=== PATIENT | female | born 2000 | race Caucasian/White ===

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

== ENCOUNTER 2021-02-09 14:04 | Emergency (ER) | payer MEDICAID, SELFPAY ==
[2021-02-09 14:11] VITALS: BP 116/68; PULSE 73; RESP 16; TEMP 36.9; O2SAT 100
--- NOTE | 2021-02-09 15:01 | ED.GENADUL_ITS ---
Discharge Plan Disposition Patient Disposition: HOME Condition: Improving Discharge Details Clinical Impression: Abdominal pain, Nausea vomiting and diarrhea Primary Care Provider: Aurelia Lombardi ED Provider: Desean Jarquin Home Meds and New Rx's Prescriptions: New ondansetron HCl [Zofran] 4 mg tablet 4 mg PO Q8H PRNQty: 10 RF: 0 Continued Nexplanon 68 MG implant 68 mg SQ ONCE Qty: 1 RF: 0 Discharge Instructions Instructions: Abdominal Pain (ED), Acute Nausea and Vomiting (ED) Additional Instructions: Laboratory values today in the ER did not reveal any obvious emergent process. As we discussed, I am providing a prescription of Zofran, take as directed. Clear liquid diet, advance as tolerated. Tgth-[id number]-[id number] medication such as Imodium may help with symptomatic control. Clear liquid diet, advance as tolerated. Please watch for new or worsening symptoms and return to the ER for any concerns. I have placed a referral to [facility], they should be contacting you to set up outpatient follow-up. I also recommend contacting your primary care provider tomorrow to discuss your ER visit need for outpatient reevaluation. Medical Decision Making <GREG Barakat - Last Filed: 02/09/21 17:41> Patient is a pleasant 21-year-old female presenting today, brought in by her stepmom, with chief complaint abdominal discomfort, nausea, vomiting, diarrhea and vaginal discharge. She reports this began approximately 1 week ago. Indicates the left side of the abdomen is area of maximal discomfort. She denies any alcohol intake. Denies any illicit drug use. Has a Nexplanon in [facility], denies being . She denies any fevers but states that she has had some chills. Last vomited 2 days ago. Had watery bowel movements today. No recent antibiotic use. No previous abdominal surgeries. Patient also concerned that she was bit by a tick on her right breast. On exam, patient appears anxious. Vital signs are stable. She has a small dot on her right breast. No surrounding erythema. She states that the tick was not embedded much and was not engorged. Unclear how long this was on for. Tick was crawling around as well. Advised that this is unlikely as it would not engorged, is an area that she likely would have seen, that probably was not on long enough to transmit Lyme disease or tic born illness. Her lungs are clear. Normal cardiac auscultation. Abdomen is diffusely tender. No peritoneal findings, no guarding. Differential diagnosis at this time is quite large. Will obtain baseline labs, particularly given the length of time she been having the vomiting and diarrhea. Patient has been using Pepto-Bismol and Tylenol to help with the discomfort without relief. We also like to questioning the patient further without her stepmother present as I am concerned about the vaginal discharge and potential sexual encounters. Will perform a vaginal exam for further evaluation. Also give some IV hydration and she has not wanted to drink or eat much for the past week. Discussed this and the patient is in agreement. Vaginal exam concerning for yellow/green mucousy discharge. This was collected from cervix for GC/chlamydia and vag path. No cervical motion tenderness. Spoke with her in private. She has had unprotected sex with signficant other of 3 yeas. She has implanon in place but is unclear how long this has been in place. Plan to refer to [facility] for continued management. Labs reviewed. WBC elevated at 12.3. CMP without signficant abnormality. UA contaminated. At the end of my shift, care transitioned to Desean Jarquin PA-C with vaginal pathology screen and reevaluation after hydration pending. <GREG Saenz - Last Filed: 02/09/21 18:46> This is a 21-year-old female who I assumed care of from my colleague GREG Velasquez, please see her initial HPI and examination. At time of signout awaiting vaginal path result, hydration, reevaluation. Rest of work-up has been completed. Mild nonspecific leukocytosis of 12.30. Urine with 80 ketones. Patient to receive IV hydration. Vaginal path negative for Queta, Gardnerella, trichomonas. GC chlamydia pending. I discussed work-up with both patient and her mother. Patient is to receive 1 L IV hydration. No vomiting under my care but will provide a prescription for Zofran for her nausea. Also recommend [id number] Imodium for her diarrhea. Clear liquid diet, advance as tolerated. Recommend that she contact her primary care provider tomorrow to discuss her ER visit and need for outpatient reevaluation. She does understand that her GC and chlamydia is pending and she will be contacted if positive, otherwise she will not be contacted if negative. I have also placed a referral to [facility] to her for her ongoing symptoms. Both mother and patient are comfortable this plan and have no additional questions or concerns. Patient able to tolerate p.o. intake without difficulty. She appears well, nontoxic, hemodynamically stable. Standard discharge and return precautions provided This documentation was generated using [employer] system, please disregard any oddities of phrase or misspellings. Medical Records Medical records reviewed: Yes I reviewed the patient's medical records. Lab Data Lab results reviewed: Yes I reviewed the patient's lab results. Labs: 02/09/21 16:15 Vaginal Vaginitis Screen - Final Laboratory Tests Range/Units 02/09/21 02/09/21 02/09/21 15:20 15:20 15:30 WBC (4.4-10.8) 10^3/uL 12.30 H RBC (3.93-5.22) 10^6/uL 4.65 Hgb (11.2-15.7) g/dL 13.5 Hct (36.0-46.0) % 42.2 MCV (80-95) fL 90.8 MCH (27.0-33.0) pg 29.0 MCHC (32.0-36.0) % 32.0 RDW (11.7-14.6) % 12.3 Plt Count (130-400) 10^3/uL 259 MPV (8.0-11.0) fL 10.9 Immature Gran % 0.3 Neutrophils % 83.3 Lymphocytes % 10.1 Monocytes % 5.9 Eosinophils % 0.1 Basophils % 0.3 Nucleated RBC % % 0 Absolute Neutrophils (1.2-6.7) 10^3/uL 10.25 H Absolute Lymphocytes (1.2-3.4) 10^3/uL 1.24 Absolute Monocytes (0.1-0.8) 10^3/uL 0.73 Absolute Eosinophils (0.0-0.7) 10^3/uL 0.01 Absolute Basophils (0.0-0.2) 10^3/uL 0.04 Sodium (136-145) mmol/L 141 Potassium (3.5-5.1) mmol/L 3.8 Chloride (98-107) mmol/L 104 Carbon Dioxide (21.0-32.0) mmol/L 27.7 Anion Gap (3-11) mmol/L 9.3 BUN (7-18) mg/dL 9 Creatinine (0.55-1.02) mg/dL 0.8 Estimated GFR/1.73 m2 (mL/min/1.73m2) >= 60.00 Glucose (74-106) mg/dL 96 Calcium (8.5-10.1) mg/dL 9.6 Magnesium (1.8-2.4) mg/dL 1.9 Total Bilirubin (0.2-1.0) mg/dL 0.7 AST (15-37) U/L 13 L ALT (14-59) U/L 20 Alkaline Phosphatase (46-116) U/L 37 L Total Protein (6.4-8.2) g/dL 8.0 Albumin (3.4-5.0) g/dL 4.6 Lipase (73-393) U/L 55 Urine Color (Yellow) Jayen Urine Clarity (Clear) Clear Urine pH (5-8) 5.5 Ur Specific Donnelly (1.005-1.025) >= 1.030 H Urine Protein (Negative) mg/dL 30 H Urine Ketones (Negative) mg/dL 80 H Urine Blood (Negative) Negative Urine Nitrite (Negative) Negative Urine Bilirubin (Negative) Small H Urine Urobilinogen (Up TO 0.2) EU/dL 0.2 Ur Leukocyte Esterase (Negative) Negative Urine RBC (0-2) HPF Negative Urine WBC (0-5) HPF 0-2 Ur Epithelial Cells (Negative) HPF Many Urine Crystals (Negative) HPF Negative Urine Bacteria (Negative) HPF Many Urine Casts (Negative) LPF Negative Urine Mucus (Negative) Negative Ur Culture Indicated? No/Sq. Contamination Urine Glucose (Negative) mg/dL Negative HPI <GREG Barakat - Last Filed: 02/09/21 17:41> General Mode of arrival: ambulatory . Date/Time Provider Initiated Documentation: 02/09/21 15:01 . Limitations to Documentation: no limitations . Information obtained by: patient, family (step mom) and RN notes reviewed . History of Present Illness 21 year old F presents to the emergency department with the chief complaint of N/V/D, abdominal discomfort, vaginal discharge, tick bite, described as moderate, with intensity rated at 6. Quality is described as aching, and is localized to the abdomen. Patient reports no radiation. Patient started experiencing this week(s) (1) and it has been constant. No relieving factors improve symptom(s), No exacerbating factors reported . Patient notes loss of appetite and nausea/vomiting; denies chest pain, cough, diaphoresis, fever/chills and shortness of breath. Patient did receive the following treatments prior to arrival, none Related Data Home Medications Medication Instructions Recorded Confirmed Nexplanon 68 mg SQ ONCE #1 implant 08/17/17 02/09/21 ondansetron HCl [Zofran] 4 mg PO Q8H PRN #10 tab 02/09/21 Previous Rx's Medication Instructions Recorded ondansetron HCl [Zofran] 4 mg PO Q8H PRN #10 tab 02/09/21 Allergies Allergy/AdvReac Type Severity Reaction Status Date / Time No Known Allergies Allergy Unverified 02/09/21 14:14 General Stated Complaint: Abd Prob LOUISE: 4 Review of Systems <GREG Barakat - Last Filed: 02/09/21 17:41> Constitutional Constitutional: Reports as per HPI, Denies chills, Denies fatigue, Denies fever(s) and Denies headache(s) ENT Ears, Nose, Mouth, and Throat: Denies headache(s) Cardiovascular Cardiovascular: Reports as per HPI, Denies chest pain and Denies dyspnea Respiratory Respiratory: Reports as per HPI, Denies cough and Denies dyspnea Gastrointestinal Gastrointestinal: Reports as per HPI Musculoskeletal Musculoskeletal: Reports as per HPI and Denies back pain Integumentary/Breasts Skin/Breast: Reports as per HPI and Denies rash Neurologic Neurologic: Reports as per HPI and Denies headache(s) Endocrine Endocrine: Denies fatigue PFSH <GREG Barakat - Last Filed: 02/09/21 17:41> Surgical History (Updated 02/16/18 @ 14:36 by [employer] [place]) Tonsillectomy Family History Mother Multiple sclerosis Father Diabetes Heart disease Myocardial infarction Social History Smoking/Tobacco Use Status: Current every day Tobacco Type: cigarettes Smoking risk assessment performed?: Yes Alcohol Intake: current Alcohol Intake frequency: holidays/special occasions only Drug use: Daily Substance use type: marijuana Do you feel safe at home: Yes Do you feel safe in your relationship?: Yes Exam <GREG Barakat Last Filed: 02/09/21 17:41> Const General: cooperative, healthy appearing, comfortable, no acute distress and well developed Nutritional Appearance: average body habitus and well nourished Orientation: alert and awake HENGA Head: normal to inspection Resp Effort & Inspection: normal respiratory effort, able to speak in complete sentences and no respiratory distress Auscultation: clear to auscultation bilaterally, no rales, no rhonchi and no wheezes Cardio Rate: regular rate Rhythm: regular rhythm Heart Sounds: S1 normal and S2 normal GI Inspection: normal to inspection, no edema and non-distended Palpation: soft, not firm, no guarding, not rigid and tender (diffusely tender, no focal area of pain) with no rebound tenderness Percussion: normal to percussion Auscultation: normal bowel sounds External Female Exam: normal external appearance Speculum Exam - Vagina: normal appearance of the vagina and abnormal vaginal discharge (yellow/green mucousy discharge) Speculum Exam - Cervix: normal appearance of the cervix Bimanual Exam- Vagina & Uterus: normal bimanual exam, normal palpation and uterine size normal Back/Spine/Pelvis Back: no CVA tenderness Skin General skin exam: no rashes or lesions noted Trauma: no lacerations or abrasions Neuro General: patient alert and patient awake Cognition: normal cognition Speech: speech normal Gait: normal gait Psych Appearance: grossly normal and well kempt Mental Status: mental status grossly normal Speech and Movement: speech and movement normal Course <GREG Barakat - Last Filed: 02/09/21 17:41> Vital Signs Vital signs: Vital Signs Temperature 36.9 C 02/09/21 14:11 Pulse 73 02/09/21 14:11 Respiratory Rate 16 02/09/21 14:11 Blood Pressure 116/68 02/09/21 14:11 Pulse Oximetry 100 02/09/21 14:11 Temperature 36.9 C 02/09/21 14:11 Temperature Source Temporal Artery Scan 02/09/21 14:11 Pulse 73 02/09/21 14:11 Respiratory Rate 16 02/09/21 14:11 Respiratory Effort Non-Labored 02/09/21 14:15 Blood Pressure 116/68 02/09/21 14:11 Blood Pressure Position Sitting 02/09/21 14:11 Pulse Oximetry 100 02/09/21 14:11 Oxygen Delivery Method Room Air 02/09/21 14:11 Oxygen Flow Rate 0 02/09/21 14:11 Pain Level 6 02/09/21 14:11 Sign Out <GREG Barakat - Last Filed: 02/09/21 17:41> Sign Out Data: Sign Out Comment: care transition to Dhruv Jarquin PA-C with vaginal pathology, hydration and reevaluation pending. Patient has had nausea, vomiting and diarrhea x1 week. Last updated by Ivanna Velasquez PA at 02/09/21 16:32
[2021-02-09 15:50] LABS: Bilirubin Small (Negative); Blood Negative (Negative); Clarity Clear (Clear); Glucose Negative (Negative); Ketones 80 mg/dL (Negative); Leukocyte Esterase Negative (Negative); Nitrite Negative (Negative); Specific Gravity >= 1.030 (1.005-1.025); Urobilinogen 0.2 EU/dL (Up TO 0.2); pH 5.5 (5-8)
[2021-02-09 15:50] LABS: Abs Immature Grans 0.04 10^3/uL (0.0-0.06); Absolute Basophil Count 0.04 10^3/uL (0.0-0.2); Absolute Eosinophil Count 0.01 10^3/uL (0.0-0.7); Absolute Lymphocyte Count 1.24 10^3/uL (1.2-3.4); Absolute Neutrophil Count 10.25 10^3/uL (1.2-6.7); Basophils % 0.3; Eosinophils % 0.1; HCT 42.2 % (36.0-46.0); HGB 13.5 g/dL (11.2-15.7); Immature Grans % 0.3; Lymphocytes % 10.1; MCV 90.8 fL (80-95); MPV 10.9 fL (8.0-11.0); Monocytes % 5.9; Neutrophils % 83.3; Nucleated RBC 0 %; Platelet Count 259 10^3/uL (130-400); RBC 4.65 10^6/uL (3.93-5.22); RDW 12.3 % (11.7-14.6)
[2021-02-09 15:59] LABS: ALT 20 U/L (14-59); AST 13 U/L (15-37); Albumin 4.6 g/dL (3.4-5.0); Alkaline Phosphatase 37 U/L (46-116); Anion Gap 9.3 mmol/L (3-11); BUN 9 mg/dL (7-18); Bilirubin, Total 0.7 mg/dL (0.2-1.0); CO2 27.7 mmol/L (21.0-32.0); CREATININE 0.8 mg/dL (0.55-1.02); Calcium 9.6 mg/dL (8.5-10.1); Chloride 104 mmol/L (98-107); Glucose 96 mg/dL (74-106); Lipase 55 U/L (73-393); Magnesium 1.9 mg/dL (1.8-2.4); Potassium 3.8 mmol/L (3.5-5.1); Sodium 141 mmol/L (136-145)
[2021-02-09 16:05] LABS: Bacteria Many HPF (Negative); C & S Indicated? No/Sq. Contamination; Casts Negative LPF (Negative); Crystals Negative HPF (Negative); Epithelial Cells Many HPF (Negative); Mucus Negative (Negative); RBC Negative HPF (0-2); WBC 0-2 HPF (0-5)
[2021-02-09 16:06] LABS: Absolute Monocyte Count 0.73 10^3/uL (0.1-0.8)
[2021-02-09 17:38] VITALS: BP 106/65; PULSE 56; RESP 16; TEMP 36.8; O2SAT 99
[2021-02-09] MEDS: Normal Saline 1,000 ML 1000 ML IV (18:21)
[2021-02-09] MEDS: Normal Saline Flush 10 ML SYR IVP (18:21)
--- NOTE | 2021-02-09 19:03 | NUR.NOTE ---
sent to [facility] [employer] [facility]
[2021-02-11 11:33] LABS: COVID-19 RT-PCR UVMMC Result Negative (Negative)
[2021-02-11 13:46] LABS: Chlamydia Result Negative (Negative); GC Result Negative (Negative)
--- NOTE | 2021-02-11 17:47 | NUR.NOTE ---
informed via phone that covid test was negative-spoke to her .Nursing Note:
== END 2021-02-09 19:13 | disposition home or self-care (01) ==
PROVIDERS: Physician Assistant; Emergency Provider Physician Assistant; PCP Family Medicine
DX: R11.2 Nausea with vomiting, unspecified (principal); R19.7 Diarrhea, unspecified; N89.8 Other specified noninflammatory disorders of vagina; S20.161A Insect bite (nonvenomous) of breast, right breast, initial encounter; W57.XXXA Bitten or stung by nonvenomous insect and other nonvenomous arthropods, initial encounter; Z20.822 Contact with and (suspected) exposure to COVID-19
CPT/HCPCS: 36415; 80053; 81025; 83690; 87491; 87591; 99284; U0003; 81003; 81015; 83735; 85025; 87480; 87510; 87660

== ENCOUNTER 2021-02-13 19:10 | Outpatient (REF) | payer MEDICAID, SELFPAY ==
[2021-02-13 21:25] LABS: C Diff PCR Negative (Negative)
[2021-02-14 22:59] LABS: Campylobacter PCR Negative (Negative); Salmonella PCR Negative (Negative); Shiga Toxin PCR Negative (Negative); Shigella/Enteroinvasive Ecoli Negative (Negative)
== END 2021-02-13 19:11 | disposition home or self-care (01) ==
LOC: NCHCN 19:10
PROVIDERS: PCP Family Medicine; Visit Provider Family Medicine
DX: R19.7 Diarrhea, unspecified (principal)
CPT/HCPCS: 87329; 87493; 87505; 83630

== ENCOUNTER 2021-03-07 15:32 | Outpatient (REF) | payer MEDICAID, SELFPAY ==
[2021-03-07 16:12] LABS: Abs Immature Grans 0.02 10^3/uL (0.0-0.06); Absolute Basophil Count 0.04 10^3/uL (0.0-0.2); Absolute Eosinophil Count 0.13 10^3/uL (0.0-0.7); Absolute Lymphocyte Count 2.98 10^3/uL (1.2-3.4); Absolute Monocyte Count 0.61 10^3/uL (0.1-0.8); Absolute Neutrophil Count 3.97 10^3/uL (1.2-6.7); Basophils % 0.5; Eosinophils % 1.7; HCT 40.9 % (36.0-46.0); Immature Grans % 0.3; Lymphocytes % 38.5; MCH 29.5 pg (27.0-33.0); MCHC 31.8 % (32.0-36.0); MCV 92.7 fL (80-95); MPV 12.2 fL (8.0-11.0); Monocytes % 7.9; Neutrophils % 51.1; Nucleated RBC 0 %; Platelet Count 231 10^3/uL (130-400); RBC 4.41 10^6/uL (3.93-5.22); RDW 12.8 % (11.7-14.6); RDW-SD 43.5 fL; WBC 7.75 10^3/uL (4.4-10.8)
[2021-03-07 16:23] LABS: Bilirubin Negative (Negative); Blood Negative (Negative); Clarity Sl Cloudy (Clear); Glucose Negative (Negative); Ketones Negative (Negative); Leukocyte Esterase Negative (Negative); Nitrite Negative (Negative); Specific Gravity >= 1.030 (1.005-1.025); Urobilinogen 0.2 EU/dL (Up TO 0.2); pH 5.5 (5-8)
[2021-03-07 16:42] LABS: ALT 21 U/L (14-59); AST 13 U/L (15-37); Albumin 4.1 g/dL (3.4-5.0); Alkaline Phosphatase 37 U/L (46-116); Amylase 37 U/L (25-115); Anion Gap 6.1 mmol/L (3-11); BUN 7 mg/dL (7-18); Bilirubin, Total 0.2 mg/dL (0.2-1.0); CO2 30.9 mmol/L (21.0-32.0); CREATININE 0.7 mg/dL (0.55-1.02); Calcium 8.8 mg/dL (8.5-10.1); Chloride 106 mmol/L (98-107); Glucose 101 mg/dL (74-106); Lipase 99 U/L (73-393); Potassium 4.4 mmol/L (3.5-5.1); Sodium 143 mmol/L (136-145); Total Protein 6.9 g/dL (6.4-8.2)
== END 2021-03-07 15:33 | disposition home or self-care (01) ==
LOC: NCHCN 15:32
PROVIDERS: PCP Family Medicine; Visit Provider Nurse Practitioner Family
DX: R10.84 Generalized abdominal pain (principal)
CPT/HCPCS: 80053; 83690; 81003; 82150; 85025

== ENCOUNTER 2021-03-21 09:03 | Emergency (ER) | payer MEDICAID, SELFPAY ==
[2021-03-21 09:07] VITALS: BP 122/66; PULSE 117; RESP 18; TEMP 37; O2SAT 98
[2021-03-21 09:49] VITALS: TEMP 37
[2021-03-21] MEDS: Ibuprofen 600 MG TAB PO (09:49)
[2021-03-21] MEDS: Metoclopramide 10 MG TAB PO (09:49)
--- NOTE | 2021-03-21 10:12 | NUR.NOTE ---
pt given gingerale Nursing Note:
[2021-03-21 10:50] VITALS: BP 110/63; PULSE 97; RESP 14; TEMP 36.7; O2SAT 98
--- NOTE | 2021-03-21 10:52 | ED.GENADUL_ITS ---
Discharge Plan Disposition Patient Disposition: HOME Condition: Good Discharge Details Clinical Impression: Abdominal pain, Nausea vomiting and diarrhea Primary Care Provider: Aurelia Lombardi ED Provider: Helena Cook Home Meds and New Rx's Prescriptions: New promethazine 25 mg tablet 25 mg PO ONCE Qty: 7 RF: 0 Continued Nexplanon 68 MG implant 68 mg SQ ONCE Qty: 1 RF: 0 ondansetron HCl [Zofran] 4 mg tablet 4 mg PO Q8H PRNQty: 10 RF: 0 sucralfate 1 gram tablet 1 g PO DAILY RF: 0 omeprazole 40 mg capsule,delayed release(DR/EC) 40 mg PO DAILY RF: 0 escitalopram oxalate 10 mg tablet 10 mg PO DAILY RF: 0 ketoconazole 2 % cream 1 applic TOPICAL PRN PRNRF: 0 Discharge Instructions Instructions: Acute Nausea and Vomiting (ED), Abdominal Pain (ED) Additional Instructions: Take Phenergan as needed for nausea and vomiting Ibuprofen and Tylenol as needed for fever and chills I suspect your symptoms are related to your recent booster, clear liquid diet, follow history of as tolerated Take ibuprofen every 8 hours Tylenol every 4-6 hours Should you have persistent or worsening symptoms in the next 24 hours, I r ecommend reassessment Referrals: Aurelia Lombardi MD [Primary Care Provider] - Medical Decision Making Patient appears well, she is feeling symptomatically improved, she is otherwise stable She is discharged home with antiemetics I suspect her symptoms are related to her recent vaccine yesterday She will take ibuprofen and Tylenol She given low threshold to return should she have new or worsening complaints Based on clinical exam, no indication for blood work at this time, she is made aware that she is here with symptoms, additional laboratory evaluation may be warranted She is discharged home Medical Records Medical records reviewed: Yes I reviewed the patient's medical records. Lab Data Lab results reviewed: Yes I reviewed the patient's lab results. HPI General Mode of arrival: ambulatory . Date/Time Provider Initiated Documentation: 03/21/21 09:04 . Limitations to Documentation: no limitations . Information obtained by: patient . HPI Narrative: 21-year-old female presents with report of nausea, vomiting, and stomach discomfort that started abruptly approximately 3 AM this morning. Patient is status post second with Darner immunization last evening at approximately 3. She has had subjective fever with chills. She denies any blood in vomitus. She denies any associated diarrhea. She denies neck. Denies any urinary symptoms or chance of . Related Data Home Medications Medication Instructions Recorded Confirmed Nexplanon 68 mg SQ ONCE #1 implant 08/17/17 03/21/21 ondansetron HCl [Zofran] 4 mg PO Q8H PRN #10 tab 02/09/21 03/21/21 escitalopram oxalate 10 mg PO DAILY 03/21/21 03/21/21 ketoconazole 1 applic TOPICAL PRN PRN 03/21/21 03/21/21 omeprazole 40 mg PO DAILY 03/21/21 03/21/21 promethazine 25 mg PO ONCE #7 tab 03/21/21 sucralfate 1 g PO DAILY 03/21/21 03/21/21 Previous Rx's Medication Instructions Recorded ondansetron HCl [Zofran] 4 mg PO Q8H PRN #10 tab 02/09/21 promethazine 25 mg PO ONCE #7 tab 03/21/21 Allergies Allergy/AdvReac Type Severity Reaction Status Date / Time No Known Allergies Allergy Unverified 03/21/21 09:10 General Stated Complaint: Nausea/Vomit/Diar LOUISE: 4 Review of Systems All systems reviewed & are unremarkable except as noted in HPI and below PFSH Active Problem List (Updated 03/21/21 @ 10:57 by GREG Gonzalez) Abdominal pain (Acute) Nausea vomiting and diarrhea (Acute) Surgical History (Updated 02/16/18 @ 14:36 by [employer] [place]) Tonsillectomy Family History Mother Multiple sclerosis Father Diabetes Heart disease Myocardial infarction Social History Smoking/Tobacco Use Status: Current every day Tobacco Type: cigarettes Smoking risk assessment performed?: Yes Alcohol Intake: current Alcohol Intake frequency: holidays/special occasions only Drug use: Daily Substance use type: marijuana Do you feel safe at home: Yes Do you feel safe in your relationship?: Yes Exam Const General: cooperative, comfortable and no acute distress HENMT Mouth: oral mucosae normal Eyes Pupils: PERRL Neck Other: no meningismus Resp Effort & Inspection: normal respiratory effort Cardio Rate: regular rate Rhythm: regular rhythm GI Other: Mild diffuse tenderness, no rebound or guarding Skin General skin exam: no rashes or lesions noted Neuro General: patient alert and patient oriented x3 Course Vital Signs Vital signs: Vital Signs Temperature 37.0 C 03/21/21 09:07 Pulse 117 H 03/21/21 09:07 Respiratory Rate 18 03/21/21 09:07 Blood Pressure 122/66 03/21/21 09:07 Pulse Oximetry 98 03/21/21 09:07 Temperature 37.0 C 03/21/21 09:49 Temperature Source Skin 03/21/21 09:07 Pulse 117 H 03/21/21 09:07 Respiratory Rate 18 03/21/21 09:07 Respiratory Effort Non-Labored 03/21/21 09:13 Blood Pressure 122/66 03/21/21 09:07 Pulse Oximetry 98 03/21/21 09:07 Pain Level 5 03/21/21 09:49 Lab/Test Results Lab/Test Results: POC- Test(urine) Negative
== END 2021-03-21 11:03 | disposition home or self-care (01) ==
PROVIDERS: Emergency Provider Physician Assistant; PCP Family Medicine
DX: R10.9 Unspecified abdominal pain (principal); R11.2 Nausea with vomiting, unspecified; R19.7 Diarrhea, unspecified
CPT/HCPCS: 99283

== ENCOUNTER 2021-04-07 00:39 | Outpatient (CLI) | payer MEDICAID, SELFPAY ==
[2021-04-07] MEDS: Omnipaque 350 MG/ML 50 ML BTL PO (13:28)
[2021-04-07] MEDS: Breeza Beverage 473 ML BTL PO (13:28)
--- NOTE | 2021-04-07 13:45 | DI.CT_ITS ---
Exam(s) CT ABDOMEN PELVIS W EXAM: CT ABDOMEN PELVIS W CLINICAL HISTORY: ABD PAIN R10.84 X 1 MONTH, WORST IN EPIGASTRUM LUQ AND RLQ. TECHNIQUE: Imaging Protocol: Axial computed tomography images with coronal and sagittal reformatted images were created and reviewed CONTRAST MATERIAL: Intravenous: Omnipaque 100cc Oral: Yes COMPARISON: No exams were available for comparison FINDINGS: VISUALIZED LUNG BASES: No nodules nor pleural effusions evident. ABDOMEN: There is no ascites. LIVER: There are no focal hepatic lesions evident . GALLBLADDER/BILIARY: No obvious gallbladder pathology. CBD is not dilated. PANCREAS: No evidence of pancreatic mass nor dilatation of the pancreatic duct. SPLEEN: Spleen size upper normal. No intrasplenic lesions evident. Splenic and portal veins are pat ent. ADRENALS: There are no significant adrenal masses. KIDNEYS:No cysts evident. No solid renal masses. No calculi nor hydronephrosis.. ABDOMINAL AORTA: Abdominal aorta is not enlarged. LYMPH NODES:There is no retroperitoneal nor paraaortic adenopathy. ABDOMINAL WALL: No evidence of significant anterior abdominal wall nor inguinal hernia. GI: There is no evidence of bowel obstruction, free air, nor abscess. PELVIS: GI: No evidence of appendicitis.No evidence of sigmoid diverticulitis. LYMPH NODES: There is no intrapelvic nor inguinal adenopathy. REPRODUCTIVE: There is a cyst in the right ovary measuring 3.5 by 3 cm. Left ovary unremarkable. Ut erus unremarkable. URINARY BLADDER: No calculi nor obvious masses evident OSSEOUS: No significant osseous lesions. IMPRESSION: 1. No significant findings in the upper abdomen and visualized lung bases.. 2. There is a 3.5 x 3.0 cm cyst in the right ovary. This appears unilocular. Followed with ultrasou nd. Free fluid. No abnormality the opposite-left adnexa. 3. 4. RADIATION DOSE DELIVERED: 823.15mGy.cm Total DLP DATA REPOSITORY: All CT scans at this facility are submitted to the National Radiology Data Registry (NRDR) Dose Index Registry (DIR) with the [employer] (ACR). RADIATION OPTIMIZATION: All CT scans at this facility use at least one of these dose optimization te chniques: automated exposure control; mA and/or kV adjustment per patient size (includes targeted exa ms where dose is matched to clinical indication); or iterative reconstruction.
[2021-04-07] MEDS: Omnipaque 350 MG/ML 100 ML BTL IJ (13:50)
== END 2021-04-07 00:59 ==
PROVIDERS: PCP Family Medicine; Visit Provider Nurse Practitioner Family
DX: R10.84 Generalized abdominal pain (principal); N83.201 Unspecified ovarian cyst, right side
CPT/HCPCS: 74177; J3490; Q9967

== ENCOUNTER 2021-04-08 00:56 | Outpatient (RCR) | payer MEDICAID, SELFPAY ==
--- NOTE | 2021-04-08 11:00 | HOLTER_ITS ---
APPROVED REPORT Conclusion This is a 24-hour Holter monitor ordered for premature ventricular contractions Predominant rhythm was sinus with an average heart rate of 83. Minimum was 51, maximum 154 There were no supraventricular dysrhythmias There were moderately frequent ventricular ectopic beats, rising 6.6% of total. There were rare coup lets and 2 triplets There was no atrial fibrillation, no high-grade AV block, no pauses greater than 3 seconds Patient symptoms of racing heart corresponded to sinus tachycardia, rate 1 35-1 40
== END 2021-05-02 23:59 | disposition home or self-care (01) ==
LOC: RT 00:56
PROVIDERS: PCP Family Medicine; Visit Provider Pediatrics Pediatric Cardiology
DX: I49.3 Ventricular premature depolarization (principal)
CPT/HCPCS: 93225; 93226

== ENCOUNTER 2021-04-19 12:29 | Emergency (ER) | payer MEDICAID, SELFPAY ==
[2021-04-19 12:37] VITALS: BP 131/74; PULSE 100; RESP 16; TEMP 37; O2SAT 98
--- NOTE | 2021-04-19 13:25 | ED.GENADUL_ITS ---
Discharge Plan Disposition Patient Disposition: HOME Condition: Stable Discharge Details Clinical Impression: Abdominal pain, Genital warts Primary Care Provider: Aurelia Lombardi ED Provider: Rambo Cherry Home Meds and New Rx's Prescriptions: No Action sertraline 50 mg tablet 50 mg PO DAILY RF: 0 Nexplanon 68 MG implant 68 mg SQ ONCE Qty: 1 RF: 0 pantoprazole 40 mg tablet,delayed release (DR/EC) 40 mg PO RF: 0 ketoconazole 2 % cream 1 applic TOPICAL PRN PRNRF: 0 escitalopram oxalate 10 mg tablet 10 mg PO DAILY RF: 0 Discharge Instructions Instructions: Genital Warts (ED), Abdominal Pain (ED) Additional Instructions: Maintain a bland diet for the next few days. 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 Please follow-up with gynecology. Be sure to discuss findings from CT scan 04/07/21 including right ovary cyst. Return to the ER immediately for any worsening or new concerning symptoms. [place] [facility] [place] Aurelia Lombardi MD [Primary Care Provider] - Discharge Data Discharge Date/Time-TO BE ENTERED AT DEPARTURE: 04/19/21 15:45 Medical Decision Making 21-year-old female presents with upper abdominal pain notes and waxing waning over the past few weeks. Abdomen is tender in her epigastric area with no rebound tenderness and no guarding. Screening labs were reviewed: No leukocytosis, normal LFTs, normal lipase. Patient did have recent advanced imaging??CT of the abdomen pelvis 04/06/2021 was reviewed -- Radiologist IMPRESSION: 1. No significant findings in the upper abdomen and visualized lung bases.. 2. There is a 3.5 x 3.0 cm cyst in the right ovary. This appears unilocular. Followed with ultrasound. Free fluid. No abnormality the opposite-left adnexa. Gynecologic exam concerning for genital warts. Patient was given Pepcid IV and reassessed and abdominal pain improved. Plan will be for discharge with outpatient follow-up with gynecology and primary care physician. Patient was encouraged to return immediately should she have any worsening or new concerning symptoms. HPI General Mode of arrival: ambulatory . Date/Time Provider Initiated Documentation: 04/19/21 12:33 . Limitations to Documentation: no limitations . Information obtained by: patient . HPI Narrative: 21-year-old female presents with chief complaint of abdominal pain. Abdominal pain is localized in epigastric and left upper abdomen. Patient notes pain is been worse postprandially. Patient states pain has been ongoing for weeks. Patient also notes bumps in her vaginal area. No vaginal discharge. No vaginal bleeding. Related Data Home Medications Medication Instructions Recorded Confirmed Nexplanon 68 mg SQ ONCE #1 implant 08/17/17 04/23/21 ketoconazole 1 applic TOPICAL PRN PRN 03/21/21 04/23/21 pantoprazole 40 mg PO 04/19/21 04/23/21 escitalopram oxalate 10 mg tablet 10 mg PO DAILY 04/23/21 04/23/21 sertraline 50 mg tablet 50 mg PO DAILY 04/23/21 04/23/21 Allergies Allergy/AdvReac Type Severity Reaction Status Date / Time No Known Allergies Allergy Unverified 04/23/21 12:58 General Stated Complaint: Abd Prob LOUISE: 3 Review of Systems All systems reviewed & are unremarkable except as noted in HPI and below Constitutional Constitutional: Denies fever(s) Gastrointestinal Gastrointestinal: Reports as per HPI and Reports nausea PFSH All Active Problems with inconclusive viability (Acute) Nausea vomiting and diarrhea (Acute) Abdominal pain (Acute) Genital warts (Acute) Surgical History Tonsillectomy Family History Mother Multiple sclerosis Father Diabetes Heart disease Myocardial infarction Social History Smoking/Tobacco Use Status: Current every day Tobacco Type: cigarettes Years smoked: 7 Smoking risk assessment performed?: Yes Alcohol Intake: current Alcohol Intake frequency: holidays/special occasions only Drug use: Rarely Substance use type: marijuana Household members: significant other Number of Children: 0 current occupation: [employer] Pets and animals: Yes Pets and animals: cat(s) and dog(s) Sexually active: Yes Do you think of yourself as: straight/heterosexual Special stanislav needs: No Agree to transfusion: Yes Seatbelt use: sometimes 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 Do you feel safe at home: Yes Do you feel safe in your relationship?: Yes Exam Const General: cooperative and no acute distress HENMT Mouth: moist mucous membranes Eyes Conjunctivae: normal conjunctivae Sclera: normal sclerae Neck Neck: trachea midline and supple Resp Auscultation: clear to auscultation bilaterally, no rales, no rhonchi and no wheezes Cardio Rate: regular rate and not tachycardic Rhythm: regular rhythm GI Palpation: soft, not firm, no guarding, no masses, not rigid and tender in the epigastrum and in the LUQ; with no rebound tenderness Auscultation: normal bowel sounds General: bladder normal to palpation External Female Exam: no external swelling and lesion (Few skin colored papules/warts right anterior labia) Speculum Exam - Vagina: normal appearance of the vagina, not erythematous and No vaginal bleeding Speculum Exam - Cervix: closed Bimanual Exam- Vagina & Uterus: normal bimanual exam, normal palpation, uterine size normal, bladder normal to palpation and no cervical motion tenderness Bimanual Exam- Adnexa, other: normal adnexae OB/External & Speculum: No vaginal bleeding Other: Tachycardic exam was performed in its entirety with female nurse misael sharma Skin General skin exam: no rashes or lesions noted Neuro General: patient alert, patient awake, patient oriented x3 and tone normal Extrem General: no edema Psych Appearance: grossly normal Mental Status: mental status grossly normal Speech and Movement: speech and movement normal Course Vital Signs Vital signs: Vital Signs Temperature 37 C 04/19/21 12:37 Pulse 100 H 04/19/21 12:37 Respiratory Rate 16 04/19/21 12:37 Blood Pressure 131/74 04/19/21 12:37 Pulse Oximetry 98 04/19/21 12:37 Temperature 37 C 04/19/21 12:37 Temperature Source Tympanic 04/19/21 12:37 Pulse 100 H 04/19/21 12:37 Respiratory Rate 16 04/19/21 12:37 Blood Pressure 131/74 04/19/21 12:37 Blood Pressure Position Sitting 04/19/21 12:37 Pulse Oximetry 98 04/19/21 12:37 Oxygen Delivery Method Room Air 04/19/21 12:37 Oxygen Flow Rate 0 04/19/21 12:37 Lab/Test Results Lab/Test Results: Laboratory Tests Range/Units 04/19/21 04/19/21 12:33 12:33 WBC Cancelled RBC Cancelled Hgb Cancelled Hct Cancelled MCV Cancelled MCH Cancelled MCHC Cancelled RDW Cancelled Plt Count Cancelled MPV Cancelled Immature Gran % Cancelled Neutrophils % Cancelled Band Neutrophils % Cancelled Lymphocytes % Cancelled Atypical Lymphs % Cancelled Monocytes % Cancelled Eosinophils % Cancelled Basophils % Cancelled Metamyelocytes % Cancelled Myelocytes % Cancelled Promyelocytes % Cancelled Other Cells % Cancelled Nucleated RBC % Cancelled Absolute Neutrophils Cancelled Absolute Lymphocytes Cancelled Absolute Monocytes Cancelled Absolute Eosinophils Cancelled Absolute Basophils Cancelled RBC Morphology Cancelled Polychromasia Cancelled Hypochromasia Cancelled Poikilocytosis Cancelled Basophilic Stippling Cancelled Anisocytosis Cancelled Microcytosis Cancelled Macrocytosis Cancelled Spherocytes Cancelled Tear Drop Cells Cancelled Ovalocytes Cancelled Stomatocytes Cancelled [place] Bodies Cancelled [place] Cells/Echinocytes Cancelled Acanthocytes (Spur) Cancelled Schistocytes Cancelled Sodium Cancelled Potassium Cancelled Chloride Cancelled Carbon Dioxide Cancelled Anion Gap Cancelled BUN Cancelled Creatinine Cancelled Estimated GFR/1.73 m2 Cancelled Glucose Cancelled Calcium Cancelled Total Bilirubin Cancelled AST Cancelled ALT Cancelled Alkaline Phosphatase Cancelled Total Protein Cancelled Albumin Cancelled POC- Test(urine) Negative
[2021-04-19] MEDS: FAMOTIDINE 20 MG/50 ML BAG 100 MG IVPB (13:49)
[2021-04-19 13:55] LABS: Abs Immature Grans 0.01 10^3/uL (0.0-0.06); Absolute Basophil Count 0.03 10^3/uL (0.0-0.2); Absolute Eosinophil Count 0.08 10^3/uL (0.0-0.7); Absolute Lymphocyte Count 2.17 10^3/uL (1.2-3.4); Absolute Monocyte Count 0.62 10^3/uL (0.1-0.8); Absolute Neutrophil Count 3.22 10^3/uL (1.2-6.7); Basophils % 0.5; Eosinophils % 1.3; Immature Grans % 0.2; Lymphocytes % 35.4; MCH 28.4 pg (27.0-33.0); MCHC 31.8 % (32.0-36.0); MCV 89.2 fL (80-95); Monocytes % 10.1; Neutrophils % 52.5; Nucleated RBC 0 %; Platelet Count 243 10^3/uL (130-400); RBC 4.93 10^6/uL (3.93-5.22); RDW 13.2 % (11.7-14.6); RDW-SD 43.7 fL; WBC 6.13 10^3/uL (4.4-10.8)
[2021-04-19 14:11] LABS: ALT 18 U/L (14-59); AST 9 U/L (15-37); Albumin 4.6 g/dL (3.4-5.0); Alkaline Phosphatase 41 U/L (46-116); Anion Gap 9.1 mmol/L (3-11); BUN 7 mg/dL (7-18); Bilirubin, Total 0.6 mg/dL (0.2-1.0); CO2 27.9 mmol/L (21.0-32.0); CREATININE 0.7 mg/dL (0.55-1.02); Calcium 9.6 mg/dL (8.5-10.1); Chloride 105 mmol/L (98-107); Glucose 89 mg/dL (74-106); Lipase 40 U/L (73-393); Potassium 3.7 mmol/L (3.5-5.1); Sodium 142 mmol/L (136-145); Total Protein 8.1 g/dL (6.4-8.2)
[2021-04-19 15:28] VITALS: BP 139/82; PULSE 62; RESP 20; TEMP 37.1; O2SAT 98
[2021-04-19 15:42] LABS: Bilirubin Small (Negative); Blood Negative (Negative); Clarity Sl Cloudy (Clear); Glucose Negative (Negative); Ketones 15 mg/dL (Negative); Leukocyte Esterase Negative (Negative); Nitrite Negative (Negative); Specific Gravity >= 1.030 (1.005-1.025); Urobilinogen 0.2 EU/dL (Up TO 0.2); pH 5.5 (5-8)
[2021-04-19 16:00] LABS: Bacteria Moderate HPF (Negative); C & S Indicated? No; Crystals Few Amorphous HPF (Negative); Epithelial Cells Many HPF (Negative); Mucus Heavy (Negative); RBC 0-2 HPF (0-2); WBC Negative HPF (0-5)
[2021-04-21 15:07] LABS: Chlamydia Result Negative (Negative); GC Result Negative (Negative)
== END 2021-04-19 15:45 | disposition home or self-care (01) ==
PROVIDERS: Emergency Provider Student in an Organized Health Care Education/Training Program; PCP Family Medicine
DX: R10.13 Epigastric pain (principal); R10.9 Unspecified abdominal pain; A63.0 Anogenital (venereal) warts; N83.291 Other ovarian cyst, right side
CPT/HCPCS: 80053; 81025; 83690; 87491; 87591; 96365; 99284; 81003; 81015; 85025; 87480; 87510; 87660

== ENCOUNTER 2021-06-25 00:30 | Outpatient (CLI) | payer MEDICAID, SELFPAY ==
--- NOTE | 2021-06-25 07:15 | DI.US_ITS ---
Exam(s) US PELVIS EXAM: US PELVIS CLINICAL HISTORY: f/u ovarian cyst,N83.209 TECHNIQUE: Transabdominal and transvaginal imaging was performed using standard protocol. COMPARISON: CT CT ABDOMEN PELVIS W from 04/07/2021 FINDINGS: KIDNEYS: Kidneys are symmetric in size. No evidence of renal calculi. No evidence of hydronephrosis. No renal mass or cyst identified. UTERUS: Anteverted. 7.5 x 4.6 x 4.1 Endometrium: 3 millimeters Myometrium: Unremarkable. Cervix: Unremarkable. OVARIES: Right: Cyst or mass: None. Cyst seen on CT has resolved.. Left: Cyst or mass: 3.3 centimeter maximal dimension simple cyst left ovary. DOPPLER: Color: Symmetric and uniform flow to both ovaries. No hyperemia. Duplex: Normal ovarian arterial waveforms visualized. CUL-DE-SAC: Free fluid: None. IMPRESSION: 1. Normal-appearing uterus with endometrial stripe within normal limits. 2. 3.3 centimeter left ovarian cyst, likely functional. Resolution right ovarian cyst seen on prior CT.. DATA REPOSITORY:
== END 2021-06-25 00:50 ==
PROVIDERS: PCP Family Medicine; Visit Provider Nurse Practitioner Women's Health
DX: N83.202 Unspecified ovarian cyst, left side (principal)
CPT/HCPCS: 76856

== ENCOUNTER 2022-07-29 15:56 | Outpatient (REF) | payer MEDICAID, SELFPAY ==
[2022-08-01 02:23] LABS: COVID-19 RT-PCR UVMMC Result Negative (Negative)
== END 2022-07-29 15:57 | disposition home or self-care (01) ==
LOC: LBN 15:56
PROVIDERS: PCP Family Medicine; Visit Provider Physician Assistant Medical
DX: J02.9 Acute pharyngitis, unspecified (principal); R05.8 Other specified cough; Z20.822 Contact with and (suspected) exposure to COVID-19
CPT/HCPCS: U0003; 87070